=== PATIENT | male | born 1965 | race Caucasian/White ===

== ENCOUNTER 2019-01-28 11:49 | Emergency (ER) | payer OTHER, SELFPAY ==
[2019-01-28 11:50] VITALS: BP 153/91; PULSE 71; RESP 18; TEMP 36.6; O2SAT 96; BMI 25.1
--- NOTE | 2019-01-28 11:56 | ED.VIS.GEN ---
History of Present Illness Chief Complaint: Laceration Informant: Patient Onset: Today Context: Sudden Onset Timing: Continuous Current Severity: Moderate Maximum Severity: Moderate Narrative: The patient presents to the emergency department laceration to his left wrist. He states he was working with galvanized steel in his garage. 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 He denies any tingling in his hand. He denies any other systemic symptoms. The patient is otherwise been in his normal state of health. Prior similar symptoms: No Recent Illness/Hospitalization: No Past Medical History - Allergies and Home Meds Allergies/Adverse Reactions: Allergies No Known Allergies Allergy (Verified 01/28/19 11:51) Primary Care Physician: Alvaro Reyes MD [Primary Care Provider] - 10 Day for suture removal Prior records reviewed: Yes Past Medical History: - Surgical History: no surgical history Smoking Status: Current every day smoker Review of Systems General: Denies: Chills, Fever, Sweats Eyes: Denies: Visual changes - bilaterally, Diplopia ENT: Denies: Rhinorrhea, Sore throat Cardiovascular: Denies: Chest pain, Palpitations Respiratory: Denies: Dyspnea, Cough, Dyspnea on exertion Gastrointestinal: Denies: Abdominal pain, Nausea, Vomiting, Diarrhea, Melena, Hematochezia Genitourinary: Denies: Dysuria, Hematuria, Frequency Musculoskeletal: Denies: Back pain, Extremity Pain Skin: Denies: Rash, Wounds Neurological: Denies: Headache, Weakness, Numbness Physical Exam Vital Signs/Narrative: Vital Signs Temp Pulse Resp BP Pulse Ox 01/28/19 11:50 98 F 71 18 153/91 H 96 Inital Vital Signs reviewed: Yes General: Well nourished, Well developed, No Acute Distress Head: Normocephalic, Atraumatic Eyes: Perrl, EOMI ENT: Moist mucous membranes, No rhinorrhea Neck: Supple, Nontender Cardiovascular: Regular rate, Regular rhythm, No murmurs Respiratory: No distress, CTA bilaterally, Chest nontender Abdomen: Soft, Nontender, Nondistended, Normal bowel sounds Back: Nontender, Normal Inspection Extremities: No edema, Tenderness - Patient has a 8 cm flap style laceration on the volar aspect of the mid forearm. There is no active bleeding. 2+ symmetric radial ulnar pulses in the hand. Skin: Normal color, No rash Neurological: Alert, Oriented x3, Cranial nerves II-XII grossly intact, Normal Strength, Normal Sensation Psychological: Normal affect, Normal Mood Diagnostic/Tx/Re-eval - Medical Decision Making The patient's wound was explored after it was anesthetized. There is no evidence of tendinous involvement. It was closed without issue. The patient was counseled on local wound care. I will place him on Keflex given the contamination although I did copiously irrigated. He will follow-up in 10 days for suture removal return with any worsening symptoms. Impression 1. 10 cm laceration of the left forearm with repair Procedures - Lacerations No standard instances Length: 3.94 in Depth: Sub Q Shape: Flap Prep: Sterile Conditions, Nancy-Cruzns Laceration repair: Irrigated, Lidocaine with epi, Local, Wound explored Irrigated (ml): 250 Number of Sutures/[place]: 10 Suture Information: Vicryl, Simple, 4-0 ED Disposition - Plan for ED Patient: Disposition: Home or Assisted Living Instructions: LACERATION, All Prescriptions: Cephalexin [Keflex] 500 mg PO Q6 #40 cap Prescription Printed Referrals: Alvaro Reyes MD [Primary Care Provider] - 10 Day for suture removal
[2019-01-28] MEDS: Diphth,Pertuss(Acell),Tet Vac 0.5 ML Vial IM (12:05)
[2019-01-28] MEDS: Bupivacaine Mpf 0.5% 30 ML VIAL INFILT (12:07)
[2019-01-28 13:02] VITALS: RESP 16
== END 2019-01-28 13:03 | disposition home or self-care (01) ==
LOC: ED 12:05
PROVIDERS: Emergency Provider Emergency Medicine; Family Provider Family Medicine; PCP Family Medicine
DX: S51.812A Laceration without foreign body of left forearm, initial encounter (principal); S61.512A Laceration without foreign body of left wrist, initial encounter; W45.8XXA Other foreign body or object entering through skin, initial encounter; Y93.89 Activity, other specified; Y92.015 Private garage of single-family (private) house as the place of occurrence of the external cause; Y99.9 Unspecified external cause status; F17.200 Nicotine dependence, unspecified, uncomplicated
CPT/HCPCS: 12004; 90471; 90715; 99284